=== PATIENT | female | born 1970 | race Caucasian/White ===

== ENCOUNTER → 2016-06-09 | Outpatient (CLI) | payer OTHER ==
--- NOTE | 2016-06-09 17:22 | DX ---
Left Foot 3 Views History: Pain in the ball of the foot with no trauma. Comparison: None available. Findings: Bipartite tibial sesamoid is noted. No fractures identified. Alignment is normal. Bone mine ralization is normal. There is no significant degenerative change. There is focal soft tissue swelli ng at the lateral aspect of the first metatarsophalangeal joint. Impression: Bipartite tibial sesamoid with no acute osseous findings.
== END ==
LOC: BMCIMAGING 16:18
PROVIDERS: ATTEND Podiatrist Foot & Ankle Surgery
DX: M89.262 Other disorders of bone development and growth, left tibia (principal)

== ENCOUNTER 2017-04-01 07:31 | Day surgery (SDC) | payer OTHER ==
--- NOTE | 2017-03-23 13:16 | GHP ---
[f rep st] PREOP HISTORY AND PHYSICAL SCHEDULED DATE OF SURGERY: 04/01/2017 at 9 a.m. PREOPERATIVE DIAGNOSIS: Menometrorrhagia and endometrial polyp. SURGERY TO BE PERFORMED: Hysteroscopy, dilation and curettage, polypectomy with morcellator, and Yanni endometrial ablation. Surgeon will be Dr. Lilliana Pedraza. HISTORY OF PRESENT ILLNESS: The patient is a 47-year-old 3, para 2-0-1- 2, who presented complaining of increasing menstrual periods over the last year. Periods have become irregular, every 23-26 days, lasting 5 days. First day is very heavy, and she has had a couple cycles where she has 2 cycles in the month, both 5 days long and slightly heavier. She has had increased moodiness, fatigue, depending on her cycles, and feeling very worn down. She had a pelvic ultrasound to evaluate her bleeding in October of this year, and it revealed a thickened endometrial stripe, 1 cm, with a 4 x 5 x 6 cm hyperechoic mass with feeder vessels in the endometrium, likely polyp. Her ovaries have small cysts. There was no free fluid. Patient had an endometrial biopsy to evaluate for endometrial pathology, which showed polypoid fragments and early-to -mid secretory pattern endometrium. No malignancy. Patient was given treatment options for her irregular bleeding, and she initially opted to try a Mirena IUD. This was placed in January of 2017. She had difficulties with the placement, and it was very uncomfortable, and within 3 days, she had severe cramping, not relieved with NSAIDs, and she had an evaluation in the office, and the IUD was at the tip of the cervix, because it had expelled. The IUD was removed. The cramping immediately resolved, but patient has continued to have irregular, heavy bleeding, and she wishes to have alternative definitive therapy for this. She was given options of hysteroscopy, D and C, and polypectomy with an endometrial ablation versus a total laparoscopic hysterectomy. Patient wishes to try the minimally-invasive approach first, with a hysteroscopy and D and C and polypectomy with the ablation, and declines any other hormonal management. PAST MEDICAL HISTORY: Patient has no significant past medical history. 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 PAST OBSTETRICAL HISTORY: She had 2 term deliveries, first by secondary to arrest of dilatation, and the second was an elective repeat C- section. She did have difficulties with her back pain during her pregnancies, and she continues to work with exercise and physical therapy. PAST GYNECOLOGICAL HISTORY: She has a normal menstrual triad. No history of any STDs. She had an abnormal Pap in 2005, and had a colposcopy, which was negative. Other Paps have been fine. Her most recent Pap was in April 2016 , which was normal. ALLERGIES: She has no known drug allergies. CURRENT MEDICATIONS: Include Flonase and the supplement DIM. SOCIAL HISTORY: She is . She lives with her and her 2 children , a boy and a girl. She denies tobacco. Has alcohol couple times a week. No drug use. Moderate caffeine use. FAMILY HISTORY: Significant for cancer in both paternal grandparents. No other significant family history. REVIEW OF SYSTEMS: Patient has fatigue and increasing bleeding during her cycles, but everything else is negative in a 10-point review of systems. OBJECTIVE: VITAL SIGNS: Today, blood pressure is 96/56, weight is 152. GENERAL: She is a well-developed, well-nourished white female. No acute distress. LUNGS: Clear to auscultation bilaterally. HEART: Regular rate and rhythm. No murmurs. ABDOMEN: Soft, nontender, nondistended. Normal bowel sounds. PELVIC: Normal external genitalia. Normal nulliparous cervix. Uterus is anteverted, anteflexed, mobile, nontender and normal size, and there are no adnexal masses. ASSESSMENT AND PLAN: A 47-year-old, 2, para 2-0-0-2 with menometrorrhagia, presumed endometrial polyp, and failed hormonal management. Desires to have a hysteroscopy, D and C, polypectomy, and Yanni endometrial ablation. The patient was consented for the procedure today. She understood the risks and benefits, the risks including bleeding, infection, damage to uterus, including possible risk of perforation, damage to other organs if perforation were to occur, electrolyte imbalances, and need for additional procedures for definitive treatment of bleeding. Patient understood these risks and benefits, and agreed to proceed. /[id number]/MODL MTDD
--- NOTE | 2017-04-01 07:33 | PDHPUP ---
History & Physical Update H&P update statement: This history and physical update is based on an assessment of the patient which was completed after admission or registration (within 24 hours), but prior to the surgery/procedure.
[2017-04-01] MEDS ORDERED: LR 1,000 ML IV ONE (07:43)
[2017-04-01] MEDS ORDERED: ONDANSETRON 4 MG/2 ML VIAL ONE (08:39)
[2017-04-01] MEDS ORDERED: LIDOCAINE 2% 5 ML SDV ONE (08:39)
[2017-04-01] MEDS ORDERED: PROPOFOL 200 MG/20 ML VIAL ONE (08:39)
[2017-04-01] MEDS ORDERED: DEXAMETHASONE 4 MG/ML VIAL ONE (08:39)
[2017-04-01] MEDS ORDERED: KETOROLAC 30 MG/1 ML SDV ONE (08:39)
[2017-04-01] MEDS ORDERED: fentaNYL 100 MCG/2 ML INJ ONE (08:39)
[2017-04-01] MEDS ORDERED: SILVER NITRATE APPLICATOR 1 APPL TP ONE (08:40)
[2017-04-01] MEDS ORDERED: MIDAZOLAM 2 MG/2 ML VIAL ONE (08:45)
[2017-04-01] MEDS ORDERED: ONDANSETRON 4 MG/2 ML VIAL IVP PRN (09:19)
[2017-04-01] MEDS ORDERED: PROMETHAZINE HCL 25 MG/ML INJ IVP PRN (09:19)
[2017-04-01] MEDS ORDERED: HYDROmorphONE/DILAUDID 1 MG/ML INJ IVP PRN (09:19)
[2017-04-01] MEDS ORDERED: NALOXONE HCL 0.4 MG/ML INJ IVP PRN (09:19)
[2017-04-01] MEDS ORDERED: ACETAMINOPHEN 500 MG TAB PO PRN (09:19)
[2017-04-01] MEDS ORDERED: HYDROCODONE/APAP 5/325 TAB PO PRN (09:19)
[2017-04-01] MEDS ORDERED: ALBUTEROL 3 ML DEYVIAL IH PRN (09:19)
[2017-04-01] MEDS ORDERED: fentaNYL 100 MCG/2 ML INJ IVP PRN (09:19)
[2017-04-01] MEDS ORDERED: IBUPROFEN 600 MG TAB PO PRN (09:42)
--- NOTE | 2017-04-01 09:46 | POSTOPPROG ---
Post Op Note Date of Operation: 04/01/17 Surgeon: Lilliana Pedraza Anesthesiologist: Dr. Luciano Hugo Anesthesia: GET(General Endotracheal) Pre-op Diagnosis: dysfunctional uterine bleeding, endometrial polyp Post-op Diagnosis: same Procedure: Hysteroscopy d and c, polypectomy, endometrial ablation Findings: endometrial polyps Inf/Abcess present in the surg proc area at time of surgery?: No Depth: Organ Space EBL: Minimal Total fluids administered: 600 Specimen(s): endometrial polyp
--- NOTE | 2017-04-01 09:47 | POSTANESTH ---
Post Anesthetic Evaluation Cardiovascular Status: Normal, Stable Respiratory Status: Normal, Stable Level of Consciousness/Mental Status: Can Participate in Eval Pain Control: Adequate, Prn Tx Ordered Nausea/Vomiting Control: Adequate, Prn Tx Ordered Complications Possibly Related to Anesthesia: None Noted
[2017-04-01 09:58] VITALS: PULSE 85; TEMP 97.7
[2017-04-01 10:28] VITALS: O2SAT 98
[2017-04-01 10:53] VITALS: BP 102/64
--- NOTE | 2017-04-01 10:53 | GOP ---
[f rep st] OPERATIVE REPORT DATE OF OPERATION: 04/01/2017 SURGEON: Lilliana Pedraza MD ANESTHESIA: General anesthesia. ANESTHESIOLOGIST: Dr. Luciano Hugo. PREOPERATIVE DIAGNOSIS: Dysfunctional uterine bleeding and endometrial polyp. POSTOPERATIVE DIAGNOSIS: Dysfunctional uterine bleeding and endometrial polyp. PROCEDURE PERFORMED: Hysteroscopy, dilation and curettage, polypectomy with morcellator and Yanni endometrial ablation. FINDINGS: SPECIMENS: Endometrial curettings, endometrial polyp. ESTIMATED BLOOD LOSS: Less than 10 cc. INDICATIONS: The patient is a 47-year-old 3, para 2-0-1-2 who presented complaining of incre asing menstrual periods over the last year. They have become irregular, every 23-26 days, lasting 5 days, very heavy; and she has had occasional 2 cycles in a month, both 5 days long and very heavy; in creasing moodiness and fatigue, all dependent on her cycles, and feeling very worn down. A pelvic ul trasound to evaluate her bleeding revealed a thickened endometrial stripe of 1 cm with a 4 x 5 x 6 mm hyperechoic mass with feeder vessel, likely polyp. The patient underwent an endometrial biopsy, whi ch showed polypoid fragments and secretory endometrium, no malignancy, no hyperplasia. She was given treatment options for her irregular bleeding, and she initially opted to have a Mirena IUD that was placed, and within a few days, expelled and caused increasing pain as it sat in her cervix. IUD was removed, and patient declined any other further medical management and wished to have surgical manage ment for her DUB and polyp. The patient was consented for a hysteroscopy, D and C, polypectomy. The patient wished to also have an endometrial ablation to attempt to prevent the periods from worsening again or any recurrence of any endometrial polyps. She was consented for the procedure. She unders tood the risks and benefits, the risks including bleeding, infection, damage to uterus including poss ible risk of perforation, damage to other organs if perforation were to occur, electrolyte imbalances , and need for additional procedures. She understood these risks and benefits and agreed to proceed. DESCRIPTION OF PROCEDURE: Patient was taken to the operating room, where she was placed under genera l anesthesia without difficulty. She was prepped and draped in the dorsal lithotomy position. After a WHO time-out was performed, an open-sided speculum was placed in the vagina, and a Rodriguez tenaculu m was used to grasp the anterior lip of the cervix. The cervical canal sounded to 5 cm. The entire uterine canal sounded to 10, giving an endometrial canal difference of 5 cm. The cervix was then pro gressively dilated with Velasquez dilators to a #6.5. The hysteroscope was then gently advanced from the cervix to the fundus, and visualization of the endometrial canal was made. There were areas of thic kened endometrium, polypoid fragments, and a definitive small polyp on the anterior wall, near the fu ndus, toward the right cornual region of the uterus. The morcellator was placed through the operativ e channel. Window lock was performed, and a polypectomy was performed with direct visualization of a ll the polypoid fragments, with particular attention to the endometrial polyp in the anterior wall. The cavity was assessed and found to be clean. The hysteroscope was then removed. The Yanni endom etrial ablation was then advanced from the cervix and advanced to the fundus. The balloon was inflat ed, cavity assessment was passed, and the ablation was performed over 120 seconds. The patient chele ated well. The device was removed. Final look with the hysteroscope revealed an intact endometrial cavity with a good charred look throughout the entire endometrium, and everything looked good. Hyste roscope was removed. Tenaculum was removed. There was no bleeding at the level of the cervix, and s peculum was removed. The patient tolerated the procedure well. Sponge, lap, needle, and instrument counts were correct x2. Patient went to the recovery room in good condition. FLUIDS REPLACED: 600 cc IV fluids. URINE OUTPUT: Not measured /[id number]/MODL
[2017-04-01 11:06] VITALS: RESP 18
== END 2017-04-01 11:24 | disposition home or self-care (01) ==
LOC: FSGY 07:31
PROVIDERS: ATTEND Obstetrics & Gynecology
PROC: 0U5B8ZZ Destruction of Endometrium, Via Natural or Artificial Opening Endoscopic (ICD-10-PCS; principal; 2017-04-01 09:00)
PROC: 0UDB8ZX Extraction of Endometrium, Via Natural or Artificial Opening Endoscopic, Diagnostic (ICD-10-PCS; principal; 2017-04-01 09:00)
PROC: 0UB98ZX Excision of Uterus, Via Natural or Artificial Opening Endoscopic, Diagnostic (ICD-10-PCS; principal; 2017-04-01 09:00)
DX: N92.1 Excessive and frequent menstruation with irregular cycle (principal); N84.0 Polyp of corpus uteri
CPT/HCPCS: 58563; C1782; J1100; J1885; J2250; J2405; J2704; J3010

== ENCOUNTER → 2017-05-04 | Outpatient (CLI) | payer OTHER ==
--- NOTE | 2017-04-01 08:28 | PDANEPAE ---
ANE History of Present Illness DUB ANE Past Medical History - Cardiovascular History Hx Hypertension: No Hx Arrhythmias: No Hx Chest Pain: No Hx Coronary Artery / Peripheral Vascular Disease: No Hx CHF / Valvular Disease: No Hx Palpitations: No - Pulmonary History Hx COPD: No Hx Asthma/Reactive Airway Disease: No Hx Recent Upper Respiratory Infection: No Hx Oxygen in Use at Home: No Hx Sleep Apnea: No - Neurologic History Hx Cerebrovascular Accident: No Hx Seizures: No Hx Dementia: No - Renal History Hx Renal Disorders: No - Liver History Hx Hepatic Disorders: No ANE Review of Systems Review of systems is: negative Review of Systems: - Exercise capacity Exercise capacity: >=4 METS ANE Patient History - Allergies Allergies/Adverse Reactions: iv dye Allergy (Uncoded 03/30/17 15:00) Vomiting - Home Medications Home Medications: Flonase Nasal [place] 03/30/17 [Last Taken 03/29/17] - NPO status NPO Status: no food or drink >8 hours - Anes Hx Anes Hx: no prior problems - Smoking Hx Smoking Status: Never smoked - Alcohol Use Alcohol Use: Occasionally - Family Anes Hx Family Anes Hx: none ANE Labs/Vital Signs - Vital Signs Vital Signs: reviewed preoperatively; see RN documention for details ANE Physical Exam - Airway Mallampati Score: Class 2 - Pulmonary Pulmonary: no respiratory distress - Cardiovascular Cardiovascular: regular rate and rhythym - ASA Status ASA Status: I ANE Anesthesia Plan Anesthesia Plan: GA w LMA
[~2017-05-04] MED LIST: MIDAZOLAM 2 MG/2 ML VIAL IVP ONE; fentaNYL 100 MCG/2 ML INJ ONE
== END ==
LOC: FIMAGING 10:52
PROVIDERS: ATTEND Obstetrics & Gynecology
DX: Z12.31 Encounter for screening mammogram for malignant neoplasm of breast (principal)
CPT/HCPCS: G0202; J2250; J3010

== ENCOUNTER → 2018-05-09 | Outpatient (CLI) | payer OTHER | LOC: FIMAGING 15:16 | PROVIDERS: ATTEND Obstetrics & Gynecology | DX: Z12.31 Encounter for screening mammogram for malignant neoplasm of breast (principal) ==